=== PATIENT | female | born 1940 | race Caucasian/White ===

== ENCOUNTER → 2020-11-17 | Outpatient (CLI) | payer OTHER ==
[~2020-11-17] MED LIST: ASPIR 8181 MG PO; CALCIUM MAGNES1 EAC2 PO; LISINOPRIL10 MG PO; METFORMIN HCL500 MG PO; PRILOSEC 20 MG20 MG PO; VITAMIN B12-FO1 EAC1 SUBLING; VITAMIN D31000 UNI2 PO
== END ==
LOC: SJCVC 11:08
PROVIDERS: ATTEND Internal Medicine
DX: R94.31 Abnormal electrocardiogram [ECG] [EKG] (principal); R07.2 Precordial pain; E78.5 Hyperlipidemia, unspecified; I10 Essential (primary) hypertension; E11.9 Type 2 diabetes mellitus without complications; K21.9 Gastro-esophageal reflux disease without esophagitis; K22.4 Dyskinesia of esophagus; Z79.4 Long term (current) use of insulin; Z72.89 Other problems related to lifestyle; Z79.82 Long term (current) use of aspirin; Z79.899 Other long term (current) drug therapy; Z88.1 Allergy status to other antibiotic agents